=== PATIENT | female | born 1965 | race Caucasian/White ===

== ENCOUNTER 2024-08-29 02:13 | Outpatient (CLI) | payer BC, SELFPAY ==
[2024-08-29 14:16] LABS: TSH (W/Ref FT4) 1.86 uIU/mL (0.36-3.74)
== END 2024-08-29 02:14 | disposition home or self-care (01) ==
LOC: LBO 02:13
PROVIDERS: PCP Family Medicine; Visit Provider Family Medicine
DX: E03.9 Hypothyroidism, unspecified (principal)
CPT/HCPCS: 36415; 84443

== ENCOUNTER 2025-02-23 05:44 | Emergency (ER) | payer BC, SELFPAY ==
[2025-02-23 05:48] VITALS: BP 125/77; PULSE 109; RESP 18; TEMP 36.3; O2SAT 98
[2025-02-23 05:52] VITALS: BP 125/77; PULSE 109; RESP 18; TEMP 36.3; O2SAT 98
--- NOTE | 2025-02-23 06:00 | W.ED.GENAD ---
Discharge Plan Disposition Patient Disposition: Home Condition: Good Discharge Details Clinical Impression: Community acquired pneumonia Primary Care Provider: David Edge ED Provider: James Larsen Home Meds and New Rx's Prescriptions: New azithromycin 200 mg/5 mL suspension for reconstitution See Rx Instructions .ROUTE .COMPLEX Qty: 40 0RF Rx Instructions: take 12.5 mL (500 mg) by mouth today (day 1), then 6.25 mL (250 mg) daily for 4 days (days 2-5) No Action Kelp 1 EACH tablet 1 ea PO DAILY Patient Comments: 225 mg magnesium oxide 250 MG tablet 250 mg PO DAILY Coral Calcium 1 EACH capsule 1 ea PO DAILY Daily Multiple 1 EACH tablet 1 ea PO DAILY levothyroxine 75 mcg capsule 75 mcg PO DAILY Discharge Instructions Instructions: Pneumonia, Adult ED Additional Instructions: At this time you have evidence of pneumonia. Please take the antibiotic as directed. If you notice any worsening of your symptoms, or any new symptoms such as vomiting, diarrhea, fever, chills, shortness of breath, chest pain, numbness, weakness, or fainting , please return immediately to the emergency department for reevaluation. Please follow up with your primary care provider as soon as possible for reassessment and reevaluation. As always, it was a pleasure participating in your medical care today. Referrals: David Edge [Primary Care Provider] - [facility] General Date/Time Provider Initiated Documentation: 02/23/25 05:45. HPI Narrative: 59-year-old female with a past medical history of hypothyroidism presents today for evaluation of cough. Symptoms started off 1 week ago as mild runny nose and congestion and sore throat, however over the week her symptoms have notably worsened, and she has now developed a productive cough with yellow sputum. She denies significant shortness of breath, chest pain, fever, nausea vomiting or diarrhea. She denies hemoptysis. No history of congestive heart failure. She does not smoke. No other complaints at this time. Related Data Home Medications ?Medication ?Instructions ?Recorded ?Confirmed calcium 185 mg-magnesium 50 mg-vit 1 ea PO DAILY 12/20/14 02/23/25 D3 2.5 mcg (100 unit) capsule (Coral Calcium) iodine (kelp) (Kelp tablet) 1 ea PO DAILY 12/20/14 02/23/25 magnesium oxide 250 mg PO DAILY 12/20/14 02/23/25 multivitamin-ferrous 1 ea PO DAILY 12/20/14 02/23/25 fumarate-folic acid 18 mg-400 mcg tablet (Daily Multiple) azithromycin 200 mg/5 mL oral See Rx Instructions PO .COMPLEX 02/23/25 suspension #40 mL levothyroxine 75 mcg capsule 75 mcg PO DAILY 02/23/25 02/23/25 Previous Rx's ?Medication ?Instructions ?Recorded azithromycin 200 mg/5 mL oral See Rx Instructions PO .COMPLEX 02/23/25 suspension #40 mL Allergies Allergy/AdvReac Type Severity Reaction Status Date / Time acetaminophen (From Roxicet) AdvReac Mild Other (See Verified 02/23/25 05:59 Comment) oxycodone (From Roxicet) AdvReac Mild Other (See Verified 02/23/25 05:59 Comment) General Stated Complaint: RespSymp ERNIE: 4 Exam Narrative Exam Narrative: 1.Const: Well-nourished, Well-developed, appearing stated age 2.Eyes: PERRL, no conjunctival injection, and symmetrical lids. 3.ENT: Atraumatic external nose and ears. Moist MM. Neck: Symmetric, trachea midline, No thyromegaly. 4.CVS: +S1/S2, Peripheral pulses 2+ and equal in all extremities. Brisk capillary refill in all extremities. 5.RESP: Unlabored respiratory effort. Clear to auscultation bilaterally. No wheezes rales or rhonchi 6.GI: Soft, Nontender/Nondistended, No hepatosplenomegaly. No guarding or rebound. 7.MSK: Normocephalic/Atraumatic, Extremities w/o deformity or ttp No cyanosis or clubbing, Normal movement of all extremities 8.Skin: Warm, Dry. No rashes or lesions. 9.Neuro: emanations analysis technician II-XII grossly intact. Sensation grossly intact, no focal neurologic deficits. 10.Psych: (AAO) x3. Appropriate mood and affect Course Vital Signs Vital signs: Vital Signs Temperature 36.3 C L 02/23/25 05:48 Pulse 109 H 02/23/25 05:48 Respiratory Rate 18 02/23/25 05:48 Blood Pressure 125/77 02/23/25 05:48 Pulse Oximetry 98 02/23/25 05:48 Temperature 36.3 C L 02/23/25 05:52 Temperature Source Temporal Artery Scan 02/23/25 05:48 Pulse 109 H 02/23/25 05:52 Respiratory Rate 18 02/23/25 05:52 Respiratory Effort Normal, Non-Labored 02/23/25 05:52 Respiratory Depth Normal 02/23/25 05:52 Blood Pressure 125/77 02/23/25 05:52 Blood Pressure Position Sitting 02/23/25 05:52 Pulse Oximetry 98 02/23/25 05:52 Oxygen Delivery Method Room Air 02/23/25 05:52 Oxygen Flow Rate 0 02/23/25 05:48 Pain Level 2 02/23/25 05:52 Medical Decision Making 59-year-old female with a past medical history of hypothyroidism presents today for evaluation of cough. Symptoms started off 1 week ago as mild runny nose and congestion and sore throat, however over the week her symptoms have notably worsened, and she has now developed a productive cough with yellow sputum. She denies significant shortness of breath, chest pain, fever, nausea vomiting or diarrhea. She denies hemoptysis. No history of congestive heart failure. She does not smoke. No other complaints at this time. Physical exam demonstrates a well-appearing female, no fever. Heart rate minimally elevated. No chest pain to suggest cardiac ACS. Lungs are surprisingly clear. Bedside ultrasound was performed and demonstrates notable consolidation with B-lines on the right lung wiggins. No significant consolidation or B-lines on the left. Concern for community-acquired pneumonia. Patient is otherwise low risk, no indication for dual antibiotic therapy. Patient is unable to take pills, and request liquid antibiotic. Will send prescription for liquid azithromycin to her pharmacy. Patient otherwise stable for discharge, no hypoxemia signs of respiratory distress to necessitate admission. Discussed red flags for which to return. I have extensively reviewed the treatment plan and discharge instructions with the patient. I have addressed all patient concerns at this time. The patient was made aware of what symptoms to monitor for that would warrant a return to the emergency department. Discussed the plan with the patient, they demonstrate verbal understanding and agreement with our assessment and plan at this time. The documentation in this chart was dictated using [employer] dictation software. Please excuse any dictation errors. Quality:SDOH Health Related Social Needs: No Data to Display PFSH All Active Problems (Updated 02/23/25 @ 06:00 by James R [place], DO) Community acquired pneumonia (Acute) Social History Smoking/Tobacco Use Status: Never Smoking risk assessment performed?: Yes Alcohol Intake: never Drug use: Never Substance use type: does not use Housing: other Do you feel safe at home: Yes Do you feel safe in your relationship?: Yes POCUS Exam (ED) Limited Thoracic Lung Exam DATE OF EXAM: 02/23/25 TIME OF EXAM: 06:04 PROVIDER THAT PERFORMED THE STUDY: James Larsen IS THIS A REPEAT EXAM DURING THIS ENCOUNTER: No REASON FOR EXAM: Pneumonia VISUALIZED STRUCTURES: right posterior and left posterior PERTINENT FINDINGS/IMPRESSION: Pneumonia Exam complete
[2025-02-23 07:02] LABS: COVID-19 PCR Negative (Negative); Influenza A PCR Negative (Negative); Influenza B PCR Negative (Negative); RSV PCR Negative (Negative)
[2025-02-23 07:26] LABS: Source Nasopharynx
== END 2025-02-23 06:11 | disposition home or self-care (01) ==
LOC: ER 07:18
PROVIDERS: Emergency Provider Student in an Organized Health Care Education/Training Program; PCP Family Medicine
DX: J18.9 Pneumonia, unspecified organism; E03.9 Hypothyroidism, unspecified
CPT/HCPCS: 36415; 76604; 87637; 99284